=== PATIENT | female | born 1950 | race Caucasian/White ===

== ENCOUNTER 2024-08-13 10:14 | Outpatient (AMB) | payer MEDICARE, SELFPAY ==
[2024-08-13 10:28] VITALS: BP 146/90; PULSE 73; RESP 16; TEMP 36.7; O2SAT 98; BMI 24.0
--- NOTE | 2024-08-13 10:28 | A.OFFPC_ITS ---
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 Transferring care from [facility] in [place], [place]. Medical records have been requested and have been received. Functional Skills Tutor Required: No Accompanied by: Self / Same As Patient Allergies morphine Adverse Reaction (Unknown, Verified 08/13/24 11:10) Itching Medication List - Last Reconciled 08/13/24 by CAPRICE Shanks alprazolam 0.25 mg PO DAILY PRN losartan 50 mg PO DAILY pantoprazole 40 mg PO DAILY paroxetine HCl 40 mg PO DAILY Tobacco use date assessed: 08/13/24 Fall risk assessment: 2 + Falls in past year Last assessed Fall Risk: 08/13/24 Dental Screening Dental Screen Date: 08/13/24 Did you have a dental visit in the last 12 months?: No Did you have a dental problem in the last 6 months where you did not have access to dental care?: No Was dental information given to patient?: No 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 OBGYN: partial hysterectomy-normal PAP smear 2019. Reports that she has never been to an OBGYN and her primary care provider was doing her Pap smear prior Past medical history: left hip pain goes down her leg-lateral hip, then anterior down the leg and stop in the foot. Medications: Family HX: Mother parkinson's disease, materanal grandfather of colon ca in his 50s, maternal aunt had breast ca, she had a ductal carcinoma in-situ and is doing fine Problem: Presenting with a request for medication refills and management of chronic health conditions. She is followed for Velasco's esophagus and was last seen for an EGD in July 2022, with the next procedure planned for 2024. Her condition contributes to dysphagia and a chronic productive cough, both of which have been present for over a year. Her GERD symptoms are controlled with Protonix, though she recently ran out and utilized Nexium temporarily. She reports elevated blood pressure readings despite medication, indicating poorly controlled essential hypertension. Her history of hyperlipidemia was previously managed with statins, which she discontinued due to adverse effects, leaving her current lipid management unchanged. Hip pain is a concern, particularly when she lies down, which has been somewhat alleviated by a contour pillow. Her irritable bowel syndrome remains stable with daily Metamucil intake without any new symptoms. The patient experiences intermittent panic attacks, managed by Paxil and as-needed Xanax. Her familial history of Parkinson?s disease, colon cancer, and breast cancer accentuates the importance of preventive care and routine screenings, including mammograms. [facility] Medical History IBS (irritable bowel syndrome) Hx of small bowel obstruction Surgical History Hx of cholecystectomy Hx of appendectomy Hx of exploratory laparotomy History of partial hysterectomy Hx of cataract removal with insertion of prosthetic lens Family History Mother Parkinson disease Maternal Aunt Breast cancer Maternal Grandfather Colon cancer Social History Household Members: None Housing: Apartment Alcohol intake: current Alcohol intake frequency: a few times a month Patient Tobacco Use Status: Former Tobacco user Tobacco use type: Cigarette Years Smoked: 25 e-Cigarette/Vaping Use: Never Used Second Hand Smoke Exposure: No service: No Current occupational status: retired Current occupational exposures/hazards: No Cognitive needs: No Hearing needs: No Vision needs: Yes (Reading glasses) Questionnaire PHQ-9 Over the last 2 weeks, how often have you been bothered by any of the following problems? 1. Little interest or pleasure in doing things: not at all 2. Feeling down, depressed, or hopeless: not at all 3. Trouble falling or staying asleep, or sleeping too much: several days 4. Feeling tired or having little energy: several days 5. Poor appetite or overeating: not at all 6. Feeling bad about yourself - or that you are a failure or have let yourself or your family down: not at all 7. Trouble concentrating on things, such as reading the newspaper or watching television: not at all 8. Moving or speaking so slowly that other people could have noticed. Or the opposite - being so fidgety or restless that you have been moving around a lot more than usual: not at all 9. Thoughts that you would be better off or of hurting yourself in some way: not at all Total score: 2 Depression Screening Interpretation: Negative Depression Screening Done: Yes 26099 - PHQ-9 Billing: Yes Source: Developed by Drs. Yemi Maynard, Anastasia Steward, Bandar Davis and colleagues, with an educational rae from [employer]. Thrive Questionnaire Date Thrive assessed: 08/13/24 I am a: Patient What is your living situation today?: I have a steady place to live Within the past 12 months, did the food you bought not last and you didn't have the money to get more?: Never true Within the past 12 months, did you worry whether your food would run out before you got money to buy more?: Never true Do you have trouble paying for medicines?: No Do you have trouble getting transportation to medical appointments?: No Do you have trouble paying your heating and electricity bill?: No Do you have trouble taking care of your child, family member or friend?: No Do you have trouble with day-to-day activities such as bathing, preparing meals, shopping, managing finances, etc.?: No Are you currently unemployed and looking for a job?: No Are you interested in more education?: No Please select the resources that you would like help with: None Currently or been in a relationship where the following occur: No concerns reported THRIVE Score: 0 AUDIT C Alcohol Use Questionnaire (AUDIT-C) 1. How often do you have a drink containing alcohol?: 2-4 times a month 2. How many drinks containing alcohol do you have on a typical day when you are drinking?: 1 or 2 3. How often do you have six or more drinks on one occasion?: Never Total Score: 2 Score Reviewed/Action Taken: No AMILCAR-7 AMB Questionnaire AMILCAR-7 Date AMILCAR - 7 assessed: 08/13/24 Feeling nervous, anxious, or on edge: 1 = Several days Not being able to stop or control worryin = Several days Worrying too much about different things: 1 = Several days Trouble relaxin = Not at all Being so restless that it is hard to sit still: 0 = Not at all Becoming easily annoyed or irritable: 0 = Not at all Feeling afraid as if something awful might happen: 0 = Not at all Total AMILCAR-7 score (0-4 normal; 5-9 mild; 10-14 moderate; 15-21 severe): 3 Source: Developed by Drs. Yemi Maynard, Anastasia Steward, Bandar Davis and colleagues, with an educational rae from [employer]. AMILCAR-7 Assessment Billing AMILCAR-7 Assessment Tool: AMILCAR-7 Assessment 41965 Review of Systems Const Details: - Respiratory: Reports chronic productive cough with clear mucus. - Gastrointestinal: Reports dysphagia; denies heartburn with medication. Reports stable irritable bowel syndrome. - Musculoskeletal: Reports hip pain radiating down the leg. - Psychological: Reports well-managed anxiety; occasional panic attacks. Denies headache(s) Eyes Denies loss of vision ENT Denies vertigo, Denies dizziness, Denies headache(s) and Denies sore throat Card Denies chest pain, Denies leg edema and Denies lightheadedness Resp Reports cough (Chronic, coughing up clear phlegm), Denies hemoptysis and Denies wheezing GI Denies abdominal pain, Denies melena, Denies constipation, Reports heartburn, Denies diarrhea, Denies vomiting and Reports other (History of IBS-stable on Metamucil) Denies urinary frequency, Denies dysuria and Denies urinary urgency Musc Reports arthralgias (Left hip), Denies joint swelling, Denies numbness, Reports radiating pain into limb and Denies tingling Neuro Denies Abnormal speech present, Denies behavioral changes, Denies vertigo, Denies dizziness, Denies headache(s), Denies loss of vision, Denies memory loss, Denies numbness and Denies tingling Psych Reports anxiety, Denies behavioral changes, Denies depression, Denies memory loss and Reports panic attacks Bhaskar/Lymph Denies easy bleeding and Denies easy bruising Aller/Immun Denies wheezing Physical exam (Primary Care) Vital Signs: Last Vital Signs Temp 98.0 F 08/13/24 10:28 Pulse 73 08/13/24 10:28 Resp 16 08/13/24 10:28 BP 146/90 H 08/13/24 10:28 Pulse Ox 98 08/13/24 10:28 Oxygen Delivery Method Room Air 08/13/24 10:28 BMI result Body Mass Index 24.0 Tobacco/Smoking Status: Tobacco use Status Tobacco use date assessed 08/13/24 08/13/24 10:49 Patient Tobacco Use Status Former Tobacco user 08/13/24 10:49 Tobacco use type Cigarette 08/13/24 10:49 e-Cigarette/Vaping Use Never Used 08/13/24 10:49 PHQ-9: PHQ-9 Score PHQ-9: Total score 2 08/13/24 11:23 Depression Screening Interpretation: Negative Thrive Assessment: Date of Thrive Assessment Date Thrive assessed 08/13/24 08/13/24 10:49 Currently or been in a relationship where the following occur: No concerns reported Const General: healthy appearing, no acute distress, alert and awake Nutritional Appearance: well nourished Orientation/consciousness: oriented to person, oriented to place and oriented to time HENMT Ears: TM's normal bilaterally General nose exam: Normal nasal mucous membranes and turbinates present Eyes Conjunctivae: conjunctivae normal Sclerae: sclerae normal Pupils: Equal, round and reactive pupils present Neck Neck: Yes no lymphadenopathy and Yes no JVD Thyroid: Thyroid normal Carotids: no bruits Resp Effort & Inspection: normal respiratory effort and not tachypneic Auscultation: no crackles, no rales, no rhonchi and no wheezes Cardio Rate: regular rate Rhythm: regular rhythm Heart sounds: no murmurs and normal S1 and S2 GI Palpation (GI): Soft to palpation, Tenderness to palpation present (GI) in the epigastrum (History of Velasco's esophagus/GERD), no hepatomegaly and no splenomegaly Auscultation: normal bowel sounds Back/Spine/Pelvis Thoracic/Lumbar Spine: lumbar spinal tenderness Skin General skin exam: no rashes or lesions noted and dry skin Neuro General: oriented to person, oriented to place and oriented to time Cranial nerves: Yes Equal, round and reactive pupils present Speech: No Abnormal speech present Gait exam (Neuro): Normal gait present Motor exam (neuro): no tremor noted Extrem Right upper extremity: full ROM Left upper extremity: full ROM Right lower extremity: full ROM; no edema Left lower extremity: full ROM; no edema Psych Mental Status: mental status grossly normal Speech and movement: Normal speech and movement present Affect: normal affect Attitude: cooperative Thought process: Normal thought process present Coding Level of Care Code New Pt Level 4 (70791) Diagnoses Chronic left hip pain M25.552; G89.29 Irritable bowel syndrome with constipation K58.1 Irritable bowel syndrome type: with constipation Velasco's esophagus with dysplasia K22.719 Velasco's esophagus type: with dysplasia of unspecified degree Gastroesophageal reflux disease, unspecified whether esophagitis present K21.9 Esophagitis presence: esophagitis presence not specified Chronic cough R05.3 Anxiety F41.9 Panic attack F41.0 Hypertension, unspecified type I10 Hypertension type: unspecified Additional Codes AMILCAR-7 Assessment Billing - AMILCAR-7 Assessment Tool: AMILCAR-7 Assessment 39748 ([id number]) PHQ-9 - 15522 - PHQ-9 Billing: Yes ([id number]) Time Spent (min) 43 Assessment & Plan Assessment & Plan (1) Chronic left hip pain: Code(s): M25.552 - Pain in left hip; G89.29 - Other chronic pain Category: Medical Plan: Patient reports a history of left hip pain that radiates into her left leg intermittently. Starting from the left hip to anterior thigh down to anterior lower leg. (2) IBS (irritable bowel syndrome): Code(s): K58.9 - Irritable bowel syndrome, unspecified Category: Medical Qualifiers: Irritable bowel syndrome type: with constipation Qualified Code(s): K58.1 - Irritable bowel syndrome with constipation Plan: Controlled-reports using Metamucil with positive effect (3) Barretts esophagus: Code(s): K22.70 - Velasco's esophagus without dysplasia Category: Medical Qualifiers: Velasco's esophagus type: with dysplasia of unspecified degree Qualified Code(s): K22.719 - Velasco's esophagus with dysplasia, unspecified Plan: EGD was due to be repeated in July 2024. We will refer the patient to GI urgently (4) GERD (gastroesophageal reflux disease): Code(s): K21.9 - Gastro-esophageal reflux disease without esophagitis Category: Medical Qualifiers: Esophagitis presence: esophagitis presence not specified Qualified Code(s): K21.9 - Gastro-esophageal reflux disease without esophagitis Plan: Reinforced dietary restriction, refrain from eating close to bedtime. Continue pantoprazole 40 mg daily (5) Chronic cough: Code(s): R05.3 - Chronic cough Category: Medical Plan: Chronic cough with productive phlegm. Consider side effects of losartan or respiratory illness. We will obtain an x-ray to further evaluate. (6) Anxiety: Code(s): F41.9 - Anxiety disorder, unspecified Category: Medical Plan: Encouraged CBT Continue paroxetine 40 mg daily and alprazolam 0.25 mg prn Denies SI/HI (7) Panic attack: Code(s): F41.0 - Panic disorder [episodic paroxysmal anxiety] Category: Medical Plan: Same as above (8) HTN (hypertension): Code(s): I10 - Essential (primary) hypertension Category: Medical Qualifiers: Hypertension type: unspecified Qualified Code(s): I10 - Essential (primary) hypertension Plan: Encouraged DASH diet and activity as tolerated, refrain alcohol use. If you smoke, smoking cessation is encouraged Patient blood pressure is above goal in office. Consider anxiety coming into a new office. Continue losartan 100 mg daily, monitor blood pressure closely. We will schedule the patient for a nurse visit for blood pressure check in 4 weeks. Orders: Orders Complete Blood Count Auto Diff 08/13/24 F41.0 - Panic disorder [episodic paroxysmal anxiety], F41.9 - Anxiety disorder, unspecified, Z00.00 - Encounter for general adult medical examination without abnormal findings Comprehensive [place]. Panel Fast 08/13/24 F41.0 - Panic disorder [episodic paroxysmal anxiety], F41.9 - Anxiety disorder, unspecified, Z00.00 - Encounter for general adult medical examination without abnormal findings Vitamin D 25-OH Total 08/13/24 F41.0 - Panic disorder [episodic paroxysmal anxiety], F41.9 - Anxiety disorder, unspecified, Z00.00 - Encounter for general adult medical examination without abnormal findings TSH reflex Free T4 08/13/24 F41.0 - Panic disorder [episodic paroxysmal anxiety], F41.9 - Anxiety disorder, unspecified, Z00.00 - Encounter for general adult medical examination without abnormal findings UA CC w/rflx Micro + Cult 08/14/24 F41.0 - Panic disorder [episodic paroxysmal anxiety], F41.9 - Anxiety disorder, unspecified, Z00.00 - Encounter for general adult medical examination without abnormal findings XR chest 2V 08/14/24 R05.3 - Chronic cough Glucose Fasting 08/13/24 F41.0 - Panic disorder [episodic paroxysmal anxiety], F41.9 - Anxiety disorder, unspecified, Z00.00 - Encounter for general adult medical examination without abnormal findings Lipid Panel 08/13/24 F41.0 - Panic disorder [episodic paroxysmal anxiety], F41.9 - Anxiety disorder, unspecified, Z00.00 - Encounter for general adult medical examination without abnormal findings MM tomosynthesis screening BI 08/14/24 Z12.39 - Encounter for other screening for malignant neoplasm of breast Referrals Gastroenterology Referral Z12.11 - Encounter for screening for malignant neoplasm of colon, Z86.0101 - Personal history of adenomatous and serrated colon polyps Gastroenterology Referral K21.9 - Gastro-esophageal reflux disease without esophagitis, K22.70 - Velasco's esophagus without dysplasia, K58.9 - Irritable bowel syndrome, unspecified Medications: New pantoprazole 40 mg PO DAILY 90 tabs 1RF losartan 100 mg PO DAILY 60 tabs 0RF alprazolam take 0.25 or 0.5.5 by mouth daily prn 0.25 mg (1/2 x 0.5 mg) PO DAILY PRN 30 tabs 0RF anxiety F41.0 - Panic disorder [episodic paroxysmal anxiety], F41.9 - Anxiety disorder, unspecified paroxetine HCl 40 mg PO DAILY 90 tabs 0RF F41.0 - Panic disorder [episodic paroxysmal anxiety], F41.9 - Anxiety disorder, unspecified
== END 2024-08-13 11:45 | disposition home or self-care (01) ==
DX: M25.552 Pain in left hip (principal); G89.29 Other chronic pain; K58.1 Irritable bowel syndrome with constipation; K22.719 Barrett's esophagus with dysplasia, unspecified; K21.9 Gastro-esophageal reflux disease without esophagitis; R05.3 Chronic cough; F41.9 Anxiety disorder, unspecified; F41.0 Panic disorder [episodic paroxysmal anxiety]; I10 Essential (primary) hypertension

== ENCOUNTER 2024-08-13 10:14 | Outpatient (REF) | payer MEDICARE, SELFPAY ==
[2024-08-13 12:12] LABS: MANUAL DIFF FLAG NO
[2024-08-13 12:18] LABS: Basophils Percent Auto 0.5 % (0-2); Eosinophils Absolute Auto 0.1 X10*3/uL (0.0-0.4); Eosinophils Percent Auto 1.5 % (0-4); Hematocrit 40.3 % (37.0-47.0); Hemoglobin 13.2 g/dl (12.0-16.0); Imm Gran Abs Auto 0.01 X10*3/uL (0.00-0.03); Imm Gran Pct Auto 0.2 % (0.0-0.4); Lymphocytes Percent Auto 45.3 % (20-40); Mean Corpuscular HGB Conc 32.8 g/dl (31.0-35.0); Mean Corpuscular Hemoglobin 30.8 pg (27.0-33.0); Mean Corpuscular Volume 94.2 fL (80.0-98.0); Mean Platelet Volume 10.3 fL (9.4-12.3); Monocytes Absolute Auto 0.3 X10*3/uL (0.1-1.2); Monocytes Percent Auto 4.7 % (2-11); Neutrophils Absolute Auto 3.1 x10*3/uL (2.0-8.3); Neutrophils Percent Auto 47.8 % (45-73); Platelet Count 319 X10*3/uL (160-400); Red Blood Count 4.28 X10*6/uL (4.20-5.50); Red Cell Distribution Width 13.3 % (11.0-16.0); White Blood Count 6.6 X10*3/uL (4.8-10.8)
[2024-08-13 13:13] LABS: Alanine Aminotransferase 9 U/L (0-31); Albumin Level 4.3 g/dL (3.5-5.0); Anion Gap 13 (12-20); Aspartate Amino Transferase 20 U/L (5-31); Bilirubin Total 0.4 mg/dL (0.0-1.0); Blood Urea Nitrogen 13 mg/dL (9-16); Calcium 9.2 mg/dL (8.4-10.2); Carbon Dioxide 25 mmol/L (22-29); Chloride 107 mmol/L (96-108); Cholesterol 229 mg/dL (<200); Estimated Glomerular Filt Rate > 60; Glucose Fasting 97 mg/dL (60-99); HDL Cholesterol 72 mg/dL (>40); LDL Cholesterol Calculated 130 mg/dL (<100); Potassium 4.2 mmol/L (3.3-5.1); Sodium 141 mmol/L (135-145); Total Protein 6.9 g/dL (6.5-8.0); Triglycerides 136 mg/dL (<150)
[2024-08-13 13:16] LABS: TSH reflex Free T4 0.81 uIU/mL (0.32-4.0)
[2024-08-13 16:59] LABS: Alkaline Phosphatase 86 U/L (39-117)
== END 2024-08-13 10:15 | disposition home or self-care (01) ==
LOC: HO.LAB 10:14
DX: Z76.89 Persons encountering health services in other specified circumstances (principal); M25.552 Pain in left hip; G89.29 Other chronic pain; K58.1 Irritable bowel syndrome with constipation; K22.719 Barrett's esophagus with dysplasia, unspecified; K21.9 Gastro-esophageal reflux disease without esophagitis; R05.3 Chronic cough; F41.0 Panic disorder [episodic paroxysmal anxiety]; I10 Essential (primary) hypertension; Z00.00 Encounter for general adult medical examination without abnormal findings
CPT/HCPCS: 36415; 80053; 80061; 82306; 84443; 85025; 96127; 99202

== ENCOUNTER 2024-08-14 11:59 | Outpatient (REF) | payer MEDICARE, SELFPAY ==
[2024-08-14 12:14] LABS: Appearance Urine Clear; Color Urine Yellow; Glucose Urine UA Negative (Negative); Leukocyte Esterase Urine Negative (Negative); Nitrite Urine Negative (Negative); PH 6.5 (5.0-9.0); Urine Blood Negative (Negative); Urine Ketones Negative (Negative); Urine Protein Negative (Neg-Trace)
== END 2024-08-14 12:00 | disposition home or self-care (01) ==
LOC: HO.LNP 11:59
DX: Z00.00 Encounter for general adult medical examination without abnormal findings (principal); F41.9 Anxiety disorder, unspecified; F41.0 Panic disorder [episodic paroxysmal anxiety]
CPT/HCPCS: 81003

== ENCOUNTER 2024-10-10 13:31 | Outpatient (REF) | payer MEDICARE, SELFPAY | END 2024-10-10 13:32 | disposition home or self-care (01) | LOC: HO.MAMMO 13:31 | DX: Z12.31 Encounter for screening mammogram for malignant neoplasm of breast (principal) | CPT/HCPCS: 77063; 77067 ==

== ENCOUNTER → 2024-10-10 14:00 | Outpatient (BNV) | payer MEDICARE, SELFPAY | PROVIDERS: Visit Provider Internal Medicine | DX: Z12.31 Encounter for screening mammogram for malignant neoplasm of breast (principal) | CPT/HCPCS: 77063; 77067 ==

== ENCOUNTER 2024-11-13 10:08 | Outpatient (AMB) | payer MEDICARE, SELFPAY ==
[2024-11-13 10:14] VITALS: BP 138/76; PULSE 76; RESP 18; O2SAT 96; BMI 23.9
--- NOTE | 2024-11-13 10:14 | MHC.PC.OV ---
Vital Signs 11/13/24 10:14 Height 5 ft 3.5 in Weight 137 lb BMI 23.9 BP 138/76 Blood Pressure Location Lt brachial Position Sitting Respiration 18 Pulse 76 Pulse Source Pulse Oximeter Temp Source Temporal Artery Scan Pulse Oximetry (%) 96 Oxygen Delivery Method Room Air Intake Visit Reasons: htn/hld Analysis Consultant Required: No Accompanied by: Self / Same As Patient Allergies morphine Adverse Reaction (Unknown, Verified 12/06/24 13:16) Itching Medication List - Last Reconciled 11/13/24 by CAPRICE Shanks alprazolam 0.25 mg (1/2 x 0.5 mg) PO DAILY PRN cholecalciferol (vitamin D3) 50 mcg PO DAILY losartan 100 mg PO DAILY pantoprazole 40 mg PO DAILY paroxetine HCl 40 mg PO DAILY Tobacco use date assessed: 11/13/24 Fall risk assessment: No Falls in past year Last assessed Fall Risk: 11/13/24 Dental Screening Dental Screen Date: 11/13/24 Did you have a dental visit in the last 12 months?: No Did you have a dental problem in the last 6 months where you did not have access to dental care?: No Was dental information given to patient?: Patient has dentist HPI htn/hld HPI Details The patient is a 71-year-old female presenting for follow up appointment Patient reports that she is feeling okay today She reports that every once in a while she is still having breakthrough anxiety but no panic attacks anymore Says that she believes that is related to her still getting used to the area, and she is still not fully comfortable traveling as yet Reports that she took Xanax at home before this appointment and this will make her feel okay for the rest of the day She reports that her blood pressure has been much better and she is requesting a refill on the medication Patient reports that her cholesterol has always been elevated even when she was on statins She will continue dietary modifications and we will start taking her vitamin-D supplement to increase her energy She has questions about vaccines that she should be taking-here to discuss discuss Currently she has been doing COVID in the flu vaccine annually, she would like to know if she should take the pneumonia vaccine She denies shortness of breath, has been, heart palpitation or dizziness Denies abdominal pain or any change in bowel habits Denies any urinary symptoms [facility] Medical History (Updated 12/06/24 @ 13:33 by RICARDO Gifford) Encounter for colonoscopy due to history of adenomatous colonic polyps Breast cancer screening IBS (irritable bowel syndrome) Hx of small bowel obstruction Surgical History Hx of cholecystectomy Hx of appendectomy Hx of exploratory laparotomy History of partial hysterectomy Hx of cataract removal with insertion of prosthetic lens Family History Mother Parkinson disease Maternal Aunt Breast cancer Maternal Grandfather Colon cancer Social History Household Members: None Housing: Apartment Alcohol intake: current Alcohol intake frequency: a few times a month Patient Tobacco Use Status: Former Tobacco user Tobacco use type: Cigarette Years Smoked: 25 e-Cigarette/Vaping Use: Never Used Second Hand Smoke Exposure: No service: No Current occupational status: retired Current occupational exposures/hazards: No Cognitive needs: No Hearing needs: No Vision needs: Yes (Reading glasses) Questionnaire PHQ-9 Over the last 2 weeks, how often have you been bothered by any of the following problems? 1. Little interest or pleasure in doing things: not at all 2. Feeling down, depressed, or hopeless: not at all 3. Trouble falling or staying asleep, or sleeping too much: several days 4. Feeling tired or having little energy: several days 5. Poor appetite or overeating: not at all 6. Feeling bad about yourself - or that you are a failure or have let yourself or your family down: not at all 7. Trouble concentrating on things, such as reading the newspaper or watching television: not at all 8. Moving or speaking so slowly that other people could have noticed. Or the opposite - being so fidgety or restless that you have been moving around a lot more than usual: not at all 9. Thoughts that you would be better off or of hurting yourself in some way: not at all Total score: 2 Depression Screening Interpretation: Negative Depression Screening Done: Yes Source: Developed by Drs. Yemi Maynard, Anastasia Steward, Bandar Davis and colleagues, with an educational rae from [employer]. Thrive Questionnaire Date Thrive assessed: 11/13/24 I am a: Patient What is your living situation today?: I have a steady place to live Within the past 12 months, did the food you bought not last and you didn't have the money to get more?: Never true Within the past 12 months, did you worry whether your food would run out before you got money to buy more?: Never true Do you have trouble paying for medicines?: No Do you have trouble getting transportation to medical appointments?: No Do you have trouble paying your heating and electricity bill?: No Do you have trouble taking care of your child, family member or friend?: No Do you have trouble with day-to-day activities such as bathing, preparing meals, shopping, managing finances, etc.?: No Are you currently unemployed and looking for a job?: No Are you interested in more education?: No Please select the resources that you would like help with: None Currently or been in a relationship where the following occur: No concerns reported THRIVE Score: 0 AUDIT C Alcohol Use Questionnaire (AUDIT-C) 1. How often do you have a drink containing alcohol?: 2-4 times a month 2. How many drinks containing alcohol do you have on a typical day when you are drinking?: 1 or 2 3. How often do you have six or more drinks on one occasion?: Never Total Score: 2 Score Reviewed/Action Taken: No AMILCAR-7 AMB Questionnaire AMILCAR-7 Date AMILCAR - 7 assessed: 11/13/24 Feeling nervous, anxious, or on edge: 1 = Several days Not being able to stop or control worryin = Several days Worrying too much about different things: 1 = Several days Trouble relaxin = Not at all Being so restless that it is hard to sit still: 0 = Not at all Becoming easily annoyed or irritable: 0 = Not at all Feeling afraid as if something awful might happen: 0 = Not at all Total AMILCAR-7 score (0-4 normal; 5-9 mild; 10-14 moderate; 15-21 severe): 3 Source: Developed by Drs. Ymei Maynard, Anastasia Steward, Bandar Davis and colleagues, with an educational rae from [employer]. Review of Systems Const Denies body aches, Denies chills, Denies fever(s), Denies headache(s) and Denies poor appetite Eyes Reports no additional complaints ENT Denies dysphagia, Denies dizziness, Denies headache(s) and Denies odynophagia Card Denies chest pain, Denies syncope, Denies edema, Denies irregular heart rhythm, Denies lightheadedness and Denies dyspnea Resp Denies cough and Denies dyspnea GI Denies abdominal pain, Denies constipation, Denies dysphagia, Denies diarrhea, Denies nausea, Denies odynophagia and Denies vomiting Reports no additional complaints Musc Reports no additional complaints and Denies abnormal gait Skin/Breast Reports system reviewed and no additional complaints, except as documented Neuro Denies abnormal gait, Denies dizziness, Denies syncope and Denies headache(s) Psych Reports anxiety and Reports panic attacks (None in a while) Physical exam (Primary Care) Vital Signs: Last Vital Signs Pulse 76 11/13/24 10:14 Resp 18 11/13/24 10:14 BP 138/76 11/13/24 10:14 Pulse Ox 96 11/13/24 10:14 Oxygen Delivery Method Room Air 11/13/24 10:14 BMI result Body Mass Index 23.9 Tobacco/Smoking Status: Tobacco use Status Tobacco use date assessed 11/13/24 11/13/24 10:22 Patient Tobacco Use Status Former Tobacco user 11/13/24 10:22 Tobacco use type Cigarette 11/13/24 10:22 e-Cigarette/Vaping Use Never Used 11/13/24 10:22 PHQ-9: PHQ-9 Score PHQ-9: Total score 2 11/13/24 11:08 Depression Screening Interpretation: Negative Thrive Assessment: Date of Thrive Assessment Date Thrive assessed 11/13/24 11/13/24 10:22 Currently or been in a relationship where the following occur: No concerns reported Const General: cooperative, healthy appearing, comfortable and no acute distress Orientation/consciousness: patient oriented x3 HENMT Head: Yes normocephalic Ears: hearing grossly normal bilaterally General nose exam: Normal external nose present Eyes General: appearance normal, both eyes and all related structures Conjunctivae: conjunctivae normal Neck Neck: Yes full ROM and Yes no lymphadenopathy Resp Effort & Inspection: normal respiratory effort Auscultation: clear to auscultation bilaterally, no crackles, no rales, no rhonchi and no wheezes Cardio Rate: regular rate Rhythm: regular rhythm Heart sounds: no murmurs GI Palpation (GI): Soft to palpation and nontender Auscultation: normal bowel sounds Skin General skin exam: no rashes or lesions noted Neuro General: patient oriented x3 Gait exam (Neuro): Normal gait present Extrem General: Yes normal to inspection, Yes full ROM and No edema Right lower extremity: full ROM; no edema Left lower extremity: full ROM; no edema Psych Affect: normal affect Attitude: cooperative Insight: Good insight present (Psych) Judgement: Good judgement present (Psych) Results Reviewed Results Reviewed: Laboratory Tests 08/13/24 08/14/24 12:10 09:25 WBC 6.6 RBC 4.28 Hgb 13.2 Hct 40.3 MCV 94.2 MCH 30.8 MCHC 32.8 RDW 13.3 Plt Count 319 MPV 10.3 Immature Gran % (Auto) 0.2 Sodium 141 Potassium 4.2 Chloride 107 Carbon Dioxide 25 Anion Gap 13 BUN 13 Creatinine 0.79 Estimated GFR > 60 Fasting Glucose 97 Calcium 9.2 Total Bilirubin 0.4 AST 20 ALT 9 Alkaline Phosphatase 86 Albumin 4.3 Triglycerides 136 Cholesterol 229 H LDL Cholesterol, Calc 130 H HDL Cholesterol 72 25-OH Vitamin D Total 17.0 L TSH 0.81 Urine Color Yellow Urine Appearance Clear Urine pH 6.5 Ur Specific [place] 1.020 Urine Protein Negative Urine Glucose (UA) Negative Urine Ketones Negative Urine Blood Negative Urine Nitrite Negative Ur Leukocyte Esterase Negative Coding Level of Care Code Est Pt Level 3 (49238) Diagnoses Panic attack F41.0 Anxiety F41.9 Hypertension, unspecified type I10 Hypertension type: unspecified Hyperlipidemia, unspecified hyperlipidemia type E78.5 Hyperlipidemia type: unspecified Vitamin D deficiency E55.9 Gastroesophageal reflux disease, unspecified whether esophagitis present K21.9 Esophagitis presence: esophagitis presence not specified Time Spent (min) 36 Assessment & Plan Assessment & Plan (1) Panic attack: Code(s): F41.0 - Panic disorder [episodic paroxysmal anxiety] Category: Medical (2) Anxiety: Code(s): F41.9 - Anxiety disorder, unspecified Category: Medical (3) HTN (hypertension): Code(s): I10 - Essential (primary) hypertension Category: Medical Qualifiers: Hypertension type: unspecified Qualified Code(s): I10 - Essential (primary) hypertension (4) HLD (hyperlipidemia): Code(s): E78.5 - Hyperlipidemia, unspecified Category: Medical Qualifiers: Hyperlipidemia type: unspecified Qualified Code(s): E78.5 - Hyperlipidemia, unspecified (5) Vitamin D deficiency: Code(s): E55.9 - Vitamin D deficiency, unspecified Category: Medical (6) GERD (gastroesophageal reflux disease): Code(s): K21.9 - Gastro-esophageal reflux disease without esophagitis Category: Medical Qualifiers: Esophagitis presence: esophagitis presence not specified Qualified Code(s): K21.9 - Gastro-esophageal reflux disease without esophagitis Plan The management plan involves maintaining current hypertension medications due to stable blood pressure readings. For hyperlipidemia, dietary changes are advised, and cholesterol levels will be re-evaluated in three months. Anxiety will be managed with Xanax as needed, focusing on reducing stress through lifestyle modifications. Protonix will continue to be used for gastroesophageal reflux disease management, as it is effective in symptom control. Vitamin D supplementation will be continued to support bone health and alleviate musculoskeletal symptoms. Preventative care includes vaccinations for flu, COVID-19, RSV, pneumonia, and shingles, with instructions on where to obtain them. Patient was informed and verbally consented to the use of an ambient scribe for clinic note documentation during this visit. Orders: Orders Lipid Panel 3 Months F41.9 - Anxiety disorder, unspecified, F41.0 - Panic disorder [episodic paroxysmal anxiety], I10 - Essential (primary) hypertension, E78.5 - Hyperlipidemia, unspecified, E55.9 - Vitamin D deficiency, unspecified, K22.719 - Velasco's esophagus with dysplasia, unspecified, K21.9 - Gastro-esophageal reflux disease without esophagitis TSH reflex Free T4 3 Months F41.9 - Anxiety disorder, unspecified, F41.0 - Panic disorder [episodic paroxysmal anxiety], I10 - Essential (primary) hypertension, E78.5 - Hyperlipidemia, unspecified, E55.9 - Vitamin D deficiency, unspecified, K22.719 - Velasco's esophagus with dysplasia, unspecified, K21.9 - Gastro-esophageal reflux disease without esophagitis Vitamin D 25-OH Total 3 Months F41.9 - Anxiety disorder, unspecified, F41.0 - Panic disorder [episodic paroxysmal anxiety], I10 - Essential (primary) hypertension, E78.5 - Hyperlipidemia, unspecified, E55.9 - Vitamin D deficiency, unspecified, K22.719 - Velasco's esophagus with dysplasia, unspecified, K21.9 - Gastro-esophageal reflux disease without esophagitis Comprehensive [place]. Panel Fast 3 Months F41.9 - Anxiety disorder, unspecified, F41.0 - Panic disorder [episodic paroxysmal anxiety], I10 - Essential (primary) hypertension, E78.5 - Hyperlipidemia, unspecified, E55.9 - Vitamin D deficiency, unspecified, K22.719 - Velasco's esophagus with dysplasia, unspecified, K21.9 - Gastro-esophageal reflux disease without esophagitis UA CC w/rflx Micro + Cult 3 Months F41.9 - Anxiety disorder, unspecified, F41.0 - Panic disorder [episodic paroxysmal anxiety], I10 - Essential (primary) hypertension, E78.5 - Hyperlipidemia, unspecified, E55.9 - Vitamin D deficiency, unspecified, K22.719 - Velasco's esophagus with dysplasia, unspecified, K21.9 - Gastro-esophageal reflux disease without esophagitis Medications: Refilled pantoprazole 40 mg PO DAILY 90 tabs 3RF losartan 100 mg PO DAILY 90 tabs 3RF paroxetine HCl 40 mg PO DAILY 90 tabs 3RF F41.9 - Anxiety disorder, unspecified, F41.0 - Panic disorder [episodic paroxysmal anxiety]
== END 2024-11-13 10:58 | disposition home or self-care (01) ==
DX: F41.0 Panic disorder [episodic paroxysmal anxiety] (principal); F41.9 Anxiety disorder, unspecified; I10 Essential (primary) hypertension; E78.5 Hyperlipidemia, unspecified; E55.9 Vitamin D deficiency, unspecified; K21.9 Gastro-esophageal reflux disease without esophagitis

== ENCOUNTER → 2024-11-13 10:08 | Outpatient (BNVA) | payer MEDICARE, SELFPAY | DX: I10 Essential (primary) hypertension (principal); E78.5 Hyperlipidemia, unspecified; F41.9 Anxiety disorder, unspecified; F41.0 Panic disorder [episodic paroxysmal anxiety]; E55.9 Vitamin D deficiency, unspecified; K21.9 Gastro-esophageal reflux disease without esophagitis | CPT/HCPCS: 96127; 99212 ==

== ENCOUNTER 2024-12-06 12:35 | Outpatient (REF) | payer MEDICARE, SELFPAY ==
[2024-12-07 06:08] LABS: Class Almond 0; Class Brazil Nut 0; Class Cashew 0; Class Codfish 0; Class Cow's Milk 0; Class Egg white 0; Class Hazelnut 0; Class Macadamia Nut 0; Class Peanut 0; Class Salmon 0; Class Scallop 0; Class Sesame Seed 0; Class Shrimp 0; Class Soybean 0; Class Tuna 0; Class Walnut 0; Class Wheat 0; F345-IgE Macadmia Nut <0.10 kU/L
[2024-12-12 14:48] LABS: Transglutaminase Ab IgG <1.0 U/mL
== END 2024-12-06 12:36 | disposition home or self-care (01) ==
LOC: HO.LAB 12:35
PROVIDERS: Visit Provider Nurse Practitioner
DX: Z01.818 Encounter for other preprocedural examination (principal); K22.719 Barrett's esophagus with dysplasia, unspecified; K21.9 Gastro-esophageal reflux disease without esophagitis; K58.1 Irritable bowel syndrome with constipation; D12.6 Benign neoplasm of colon, unspecified; R19.7 Diarrhea, unspecified; Z12.11 Encounter for screening for malignant neoplasm of colon; Z88.5 Allergy status to narcotic agent
CPT/HCPCS: 36415; 86003; 86364; 99202

== ENCOUNTER 2024-12-06 12:35 | Outpatient (AMB) | payer MEDICARE, SELFPAY ==
--- NOTE | 2024-12-06 12:43 | A.OFFVIS_ITS ---
Vital Signs 3 12/06/24 13:09 Height 5 ft 3 in Weight 137 lb BMI 24.3 BP 120/80 Blood Pressure Location Lt brachial Pulse 73 Intake Visit Reasons: colo screening, gerd, barretts esophagus, ibs Accompanied by: Self / Same As Patient Allergies morphine Adverse Reaction (Unknown, Verified 12/06/24 13:16) Itching HPI HPI colo screening, gerd, barretts esophagus, ibs: Details: 74-year-old female here for a screening colonoscopy and evaluation of GERD and Barretts esophagus. She is referred by Hussain Gray. PMX Hypertension High cholesterol Chronic cough GERD/Barretts IBS Chronic left hip pain Anxiety with panic attacks History of small-bowel obstruction s/p appendix rupture adn sepsis * SURGICAL HISTORY Cholecystectomy Appendectomy Exploratory laparotomy Partial hysterectomy Cataract surgery Tonsillectomy and adenectomy * ALLERGIES Morphine * Client24 LABS: Laboratory Tests 08/13/24 12:10 WBC 6.6 Hgb 13.2 Hct 40.3 Plt Count 319 Estimated GFR > 60 Total Bilirubin 0.4 AST 20 ALT 9 Alkaline Phosphatase 86 TSH 0.81 TODAY'S VISIT Her 2022 scope showed a TVA and the rectal polyp, 1 of 3, was 1.5cm. EGD showed mod chronic gastirits on biopsy , negative for H pylori, and Barrets esophogus w/o any dyplasia. No anes or sed problems. No card or resp problems. NO ID problems. Her maternal grandfather of CRC in 60's, maternal grandmother had polyps. [facility] Medical History (Updated 12/06/24 @ 13:33 by RICARDO Gifford) Encounter for colonoscopy due to history of adenomatous colonic polyps Breast cancer screening IBS (irritable bowel syndrome) Hx of small bowel obstruction Surgical History Hx of cholecystectomy Hx of appendectomy Hx of exploratory laparotomy History of partial hysterectomy Hx of cataract removal with insertion of prosthetic lens Family History Mother Parkinson disease Maternal Aunt Breast cancer Maternal Grandfather Colon cancer Social History Household Members: None Housing: Apartment Alcohol intake: current Alcohol intake frequency: a few times a month Patient Tobacco Use Status: Former Tobacco user Tobacco use type: Cigarette Years Smoked: 25 e-Cigarette/Vaping Use: Never Used Second Hand Smoke Exposure: No service: No Current occupational status: retired Current occupational exposures/hazards: No Cognitive needs: No Hearing needs: No Vision needs: Yes (Reading glasses) Review of Systems Const Denies fatigue, Denies fever(s), Denies night sweats, Denies poor appetite and Denies weight loss ENT Reports Normal hearing present, Denies dental pain, Denies dysphagia, Denies hearing loss, Denies mouth pain, Denies odynophagia, Denies throat swelling, Denies tongue swelling and Reports other (Dentition adequate) Card Reports no additional complaints Resp Reports no additional complaints GI Details: Denies abdominal pain, Denies melena, Denies bloating, Denies hematochezia, Denies constipation, Denies GI cramping, Denies dysphagia, Denies excessive flatus, Denies early satiety, Denies heartburn, Denies diarrhea, Denies nausea, Denies odynophagia, Denies vomiting and Denies hematemesis Skin/Breast Denies pruritus, Denies lesions, Denies rash and Denies jaundice Neuro Reports Normal hearing present and Denies Abnormal speech present Endo Denies fatigue Aller/Immun Denies throat swelling and Denies tongue swelling Physical Exam Vital Signs: Last Vital Signs Pulse 73 12/06/24 13:09 BP 120/80 12/06/24 13:09 BMI result Body Mass Index 24.3 Const General: cooperative, no acute distress, well developed and well groomed Nutritional Appearance: average body habitus and well nourished Orientation/consciousness: oriented to person, oriented to place and oriented to time Limitations: No language barrier HEENT Head: Yes normocephalic and Yes atraumatic Eyes General: appearance normal, both eyes and all related structures Pupils: Equal, round and reactive pupils present Neck Neck: Yes normal visual inspection and Yes no lymphadenopathy Thyroid: Thyroid normal Resp Effort & Inspection: normal respiratory effort and able to speak in complete sentences Auscultation: clear to auscultation bilaterally Cardio Rate: regular rate Rhythm: regular rhythm Heart sounds: Normal, physiologic split S2 sound present Peripheral pulses: radial pulses present and posterior tibial pulses present GI Inspection: No distended and No Abdominal panniculus present Palpation (GI): Soft to palpation, nontender, no guarding, not rigid and No hepatosplenomegaly present Percussion: Yes normal to percussion Auscultation: normal bowel sounds Rectal Exam - Female: deferred Abdomen image: 2 1. surgical scars Skin General skin exam: no rashes or lesions noted, turgor normal, skin not dry, no jaundice, No spider nevi and no striae Rashes: no rashes Nails: normal Neuro General: oriented to person, oriented to place and oriented to time Cranial nerves: Yes Equal, round and reactive pupils present and Yes Normal hearing present Speech: No Abnormal speech present Extrem General: Yes normal to inspection, No clubbing, No cyanosis and No edema Psych Appearance: grossly normal and well kempt Mental Status: mental status grossly normal Speech and movement: Normal speech and movement present Affect: normal affect Attitude: cooperative Thought process: Normal thought process present and not confabulating Thought content: Normal thought content present Insight: Good insight present (Psych) Judgement: Good judgement present (Psych) Assessment & Plan Assessment & Plan (1) Pre-op examination: Code(s): Z01.818 - Encounter for other preprocedural examination Category: Medical (2) Barretts esophagus: Comment: 2022 last EGD biopsy showed continued metaplasia no dysplasia Code(s): K22.70 - Velasco's esophagus without dysplasia Category: Medical Qualifiers: Velasco's esophagus type: with dysplasia of unspecified degree Q ualified Code(s): K22.719 - Velasco's esophagus with dysplasia, unspecified (3) GERD (gastroesophageal reflux disease): Code(s): K21.9 - Gastro-esophageal reflux disease without esophagitis Category: Medical Qualifiers: Esophagitis presence: esophagitis presence not specified Qualified Code(s): K21.9 - Gastro-esophageal reflux disease without esophagitis (4) IBS (irritable bowel syndrome): Code(s): K58.9 - Irritable bowel syndrome, unspecified Category: Medical Qualifiers: Irritable bowel syndrome type: with constipation Qualified Code(s): K 58.1 - Irritable bowel syndrome with constipation (5) Tubulovillous adenoma of colon: Comment: 2022 SCOPE IN [place] equaled for polyps the rectal polyp is 1.5 cm and was a tubulovillous adenoma Code(s): D12.6 - Benign neoplasm of colon, unspecified Category: Medical (6) Diarrhea: Code(s): R19.7 - Diarrhea, unspecified Category: Medical Plan Her 2022 scope showed a TVA and the rectal polyp, 1 of 3, was 1.5cm. EGD showed mod chronic gastirits on biopsy , negative for H pylori, and Barrets esophogus w/o any dyplasia. No anes or sed problems. No card or resp problems. NO ID problems. Her maternal grandfather of CRC in 60's, maternal grandmother had polyps. Orders: Orders 2 EGD/[facility] Combo - GI Use Only 12/06/24 D12.6 - Benign neoplasm of colon, unspecified Transglutaminase IgA 12/06/24 R19.7 - Diarrhea, unspecified Transglutaminase Ab IgG 12/06/24 R19.7 - Diarrhea, unspecified Medications: New 2 peg 3350-electrolytes 236-22.74-6.74 -5.86 gram (Golytely) until fecal effluent is clear; do not exceed a total volume of 2,000 mL 240 mL PO Q10M 4,000 mL 0RF 1 day Z12.11 - Encounter for screening for malignant neoplasm of colon bisacodyl (Dulcolax (bisacodyl)) 10 mg (2 x 5 mg) PO BEDTIME 4 tabs 0RF 2 days dicyclomine 20 mg PO QID 120 tabs 3RF 30 days K58.1 - Irritable bowel syndrome with constipation Coding Level of Care Code New Pt Level 3 (62781) Diagnoses Pre-op examination Z01.818 Velasco's esophagus with dysplasia K22.719 Velasco's esophagus type: with dysplasia of unspecified degree Gastroesophageal reflux disease, unspecified whether esophagitis present K21.9 Esophagitis presence: esophagitis presence not specified Irritable bowel syndrome with constipation K58.1 Irritable bowel syndrome type: with constipation Tubulovillous adenoma of colon D12.6 Diarrhea R19.7
[2024-12-06 13:09] VITALS: BP 120/80; PULSE 73; BMI 24.3
== END 2024-12-06 13:47 | disposition home or self-care (01) ==
LOC: HO.HGI 12:35
PROVIDERS: Visit Provider Nurse Practitioner
DX: K21.9 Gastro-esophageal reflux disease without esophagitis (principal); K58.1 Irritable bowel syndrome with constipation; R19.7 Diarrhea, unspecified; Z86.0101 Personal history of adenomatous and serrated colon polyps
CPT/HCPCS: 99203

== ENCOUNTER 2025-01-21 11:43 | Day surgery (SDC) | payer MEDICARE, SELFPAY ==
[2024-12-27 14:54] VITALS: BMI 24.3
--- NOTE | 2024-12-30 09:44 | HO.ANESPROP2 ---
HPI - Anesthesia Eval Consult details Narrative: 74yo F for Upper Endoscopy and Colonoscopy PMF Active Problems Active Problems: All Active Problems Diarrhea (Acute) Tubulovillous adenoma of colon (Acute) Pre-op examination (Acute) Vitamin D deficiency (Acute) HLD (hyperlipidemia) (Acute) HTN (hypertension) (Acute) Chronic cough (Acute) GERD (gastroesophageal reflux disease) (Acute) Barretts esophagus (Acute) Chronic left hip pain (Acute) Anxiety (Acute) Panic attack (Acute) IBS (irritable bowel syndrome) (Acute) Past Medical History Medical History (Updated 12/27/24 @ 14:52 by Vangie Martines, SOULEYMANE) GERD (gastroesophageal reflux disease) Barretts esophagus Anxiety Hyperlipidemia HTN (hypertension) Encounter for colonoscopy due to history of adenomatous colonic polyps IBS (irritable bowel syndrome) Hx of small bowel obstruction Family History Family History Mother Parkinson disease Maternal Aunt Breast cancer Maternal Grandfather Colon cancer Surgical History Surgical History Hx of cholecystectomy Hx of appendectomy Hx of exploratory laparotomy History of partial hysterectomy Hx of cataract removal with insertion of prosthetic lens Social History Social History Household Members: None Housing: Apartment Alcohol intake: current Alcohol intake frequency: a few times a month Patient Tobacco Use Status: Former Tobacco user Tobacco use type: Cigarette Years Smoked: 25 e-Cigarette/Vaping Use: Never Used Second Hand Smoke Exposure: No service: No Current occupational status: retired Current occupational exposures/hazards: No Cognitive needs: No Hearing needs: No Vision needs: Yes (Reading glasses) Meds Allergies Allergy/AdvReac Type Severity Reaction Status Date / Time morphine AdvReac Unknown Itching Verified 12/06/24 13:16 Exam Height,Weight and Vital Signs: Height 5 ft 3 in Weight 62.142 kg Assessment and Plan Assessment Anesthesia Assessment: Chart Reviewed
--- NOTE | 2025-01-21 12:05 | MHC.SHP ---
Pre-Procedural Eval Section A - 24 Hr Update-Section A only Date of Service: 01/21/25 Section B - Complete if H&P > 30 days Chief Complaint: Velasco's esophagus, Hx of polyps Details of Present Illness: Hypertension High cholesterol Chronic cough GERD/Barretts IBS Chronic left hip pain Anxiety with panic attacks History of small-bowel obstruction s/p appendix rupture adn sepsis * SURGICAL HISTORY Cholecystectomy Appendectomy Exploratory laparotomy Partial hysterectomy Cataract surgery Tonsillectomy and adenectomy * ALLERGIES Morphine * Present Medications: see Short Stay Collaborative assessment Allergies: Allergies Allergy/AdvReac Type Severity Reaction Status Date / Time morphine AdvReac Unknown Itching Verified 12/06/24 13:16 Review of Systems Review of Systems Comment: Ten point ROS negative Exam Exam Comment: Gen appear: No acute distress HEENT: no icterus Chest: No overt resp distress Abd: soft, nontender, nondistended Psych: Stable affect, answering questions appropriately Neuro: A/Ox3 noted to move all extremities spontaneously Ext: no peripheral edema Plan Diagnosis/Plan: Unchanged I have reviewed the history and physical and performed a pertinent physical examination on my patient. No changes have occurred unless specified. Time Spent With Patient Time: Total time managing care of this patient today ____ minutes.
[2025-01-21 12:12] VITALS: BP 173/93; PULSE 82; RESP 18; TEMP 36.1; O2SAT 97; BMI 23.5
[2025-01-21] MEDS: Lactated Ringers 1,000 ML 100 ML IVCONT (12:24)
--- NOTE | 2025-01-21 13:13 | P.CONAN_ITS ---
[facility] Active Problems Active Problems: All Active Problems Diarrhea (Acute) Tubulovillous adenoma of colon (Acute) Pre-op examination (Acute) Vitamin D deficiency (Acute) HLD (hyperlipidemia) (Acute) HTN (hypertension) (Acute) Chronic cough (Acute) GERD (gastroesophageal reflux disease) (Acute) Barretts esophagus (Acute) Chronic left hip pain (Acute) Anxiety (Acute) Panic attack (Acute) IBS (irritable bowel syndrome) (Acute) Past Medical History Medical History GERD (gastroesophageal reflux disease) Barretts esophagus Anxiety Hyperlipidemia HTN (hypertension) Encounter for colonoscopy due to history of adenomatous colonic polyps IBS (irritable bowel syndrome) Hx of small bowel obstruction Family History Family History Mother Parkinson disease Maternal Aunt Breast cancer Maternal Grandfather Colon cancer Family history of problems with anesthesia: No Surgical History Surgical History Hx of esophagogastroduodenoscopy Hx of colonoscopy Hx of cholecystectomy Hx of appendectomy Hx of exploratory laparotomy History of partial hysterectomy Hx of cataract removal with insertion of prosthetic lens History of Problems with Anesthesia: No Social History Social History Household Members: None Housing: Apartment Alcohol intake: current Alcohol intake frequency: does not drink Patient Tobacco Use Status: Former Tobacco user Tobacco use type: Cigarette Years Smoked: 25 e-Cigarette/Vaping Use: Never Used Second Hand Smoke Exposure: No Are you DNR?: No Advance Directives: No Advance Directives Information Provided: Yes service: No Current occupational status: retired Current occupational exposures/hazards: No Cognitive needs: No Hearing needs: No Vision needs: Yes (Reading glasses) Meds Allergies Allergy/AdvReac Type Severity Reaction Status Date / Time morphine AdvReac Unknown Itching Verified 12/06/24 13:16 Active Medications: Current Medications Lactated Ringer's (Lr) 1,000 mls @ 100 mls/hr IVCONT .Q10H CHATO Last Admin: 01/21/25 12:24 Dose: 100 mls/hr Exam Exam Date and Time: 01/21/25 Height,Weight and Vital Signs: Height 5 ft 3 in Weight 60.2 kg Last Vital Signs Temp 97 F 10/14/25 12:12 Pulse 82 01/21/25 12:12 Resp 18 01/21/25 12:12 BP 173/93 H 01/21/25 12:12 Pulse Ox 97 01/21/25 12:12 O2 Del Method Room Air 01/21/25 12:12 Narrative Narrative: took losartan today Airway Mallampati Class: I TM Dist: >3cm Neck ROM: Full Heart: rrr Lungs: ctab vesicular Assessment and Plan Assessment Anesthesia Assessment: Anesthesia Plan Discussed and Chart Reviewed Final Anesthetic Review Family History of Problems with Anesthesia: No History of Problems with Anesthesia: No NPO: Yes ASA Class: II Final Preanesthetic Review: No Changes in Pt Med Stat, Meds/Allgs Chart Reviewed, Consent Obtained/Reviewed and Anes Risks/Benef Reviewed Patient Risk: Low Procedure Risk: Low Anesthetic Plan Anesthetic Plan: MAC: Disposition: Standard PACU
[2025-01-21 14:13] VITALS: BP 138/75; PULSE 70; RESP 20; TEMP 37.1; O2SAT 97
[2025-01-21 14:28] VITALS: BP 170/87; PULSE 69; RESP 20; O2SAT 99
--- NOTE | 2025-01-21 14:34 | P.OPN-COLO_ITS ---
Colonoscopy Operative Note Operative Note Date of Service: 01/21/25 Narrative: Procedure: Upper endoscopy and colonoscopy Indication: BE, hx of polyps Endoscopist: Jamilah Renner MD Anesthesia Provider: Dr Gabe Weston Anesthesia type: MAC Instrument: [id number] and [id number] EGD Procedure:?? The procedure, indications, preparation and potential complications were reviewed with the patient, who indicated understanding and gave written informed consent to proceed. The endoscope was introduced through the mouth, and advanced to the 2nd part of the duodenum. The mucosa was carefully examined on slow withdrawal of the endoscope. The patient tolerated the procedure well. There were no immediate complications.? EGD Findings:? * Esophagus:? Normal esophageal mucosa was noted. The Z-line was at 40 cm and irregular to 39 cm with a SCM tongue extending to 38 cm ([place] C1M2). Cold forceps biopsies were taken q1cm for Velasco's surveillance. A tissue cypher was also sent. * Stomach:? Normal gastric mucosa. Retroflexion was performed in the cardia. * Duodenum:? Normal duodenal mucosa. Colonoscopy Procedure:? The patient was then turned for the colonoscopy. A digital rectal exam was performed which was normal.? A distal attachment cap was affixed to the tip of the scope and the colonoscope was then inserted through the anus and advanced through the colon and advanced to the cecum at 75 cm.? Appendiceal orifice and ileocecal valve were identified. Mucosa was carefully examined under high definition white light as the instrument was slowly withdrawn in a retrograde panoramic fashion. Retroflexion was performed in rectum. The procedure was not difficult. The quality of the prep was BBPS: 2+2+3 = adequate Withdrawal time 16 minutes Limitations: No limitations Findings: Mucosa: Normal colon and terminal ileum mucosa. Protruding lesions: * 2 sessile polyps of size 5-8 mm were noted in ascending colon. Cold snare polypectomy was performed. The polyps were completely removed and retrieved. * 1 sessile polyp of size 2 mm in transverse colon. Cold forceps polypectomy was performed. The polyp was completely removed and retrieved. * 1 semi-pedunculated polyp of size 10 mm in sigmoid colon. Hot snare polypectomy was performed. The polyp was completely removed and retrieved. * Medium internal hemorrhoids without stigmata of recent bleeding. Excavated lesions: ? Mild diverticulosis of sigmoid colon. Impression: 1. Velasco's esophagus (biopsy) 2. Normal stomach 3. Normal duodenum 4. Normal colon mucosa 5. Total of 4 polyps removed 6. Diverticulosis 7. Internal hemorrhoids Recommendations:?? * Follow-up path results * Avoid NSAIDs * Cont PPI * Repeat colonoscopy in 3 years
[2025-01-21 14:39] VITALS: BP 162/75; PULSE 72; RESP 16; TEMP 36.8; O2SAT 98
== END 2025-01-21 15:23 | disposition home or self-care (01) ==
PROVIDERS: Visit Provider Internal Medicine
PROC: (CPT 45380; principal; 2025-01-21 14:50)
DX: Z12.11 Encounter for screening for malignant neoplasm of colon (principal); Z86.0101 Personal history of adenomatous and serrated colon polyps; K22.70 Barrett's esophagus without dysplasia; D12.2 Benign neoplasm of ascending colon; D12.5 Benign neoplasm of sigmoid colon; D12.3 Benign neoplasm of transverse colon; K57.30 Diverticulosis of large intestine without perforation or abscess without bleeding; K64.8 Other hemorrhoids
CPT/HCPCS: 45380; 45385; 43239; 88305; 88313; 88342; J0168; J2003; J2371; J2405; J2704; J3010

== ENCOUNTER → 2025-01-21 11:43 | Outpatient (BNV) | payer MEDICARE, SELFPAY | PROVIDERS: Visit Provider Internal Medicine | DX: Z12.11 Encounter for screening for malignant neoplasm of colon (principal); Z86.0100 Personal history of colon polyps, unspecified; D12.2 Benign neoplasm of ascending colon; D12.5 Benign neoplasm of sigmoid colon; D12.3 Benign neoplasm of transverse colon; K57.30 Diverticulosis of large intestine without perforation or abscess without bleeding; K64.8 Other hemorrhoids; K22.70 Barrett's esophagus without dysplasia | CPT/HCPCS: 43239; 45380; 45385 ==

== ENCOUNTER 2025-02-04 12:00 | Outpatient (AMB) | payer MEDICARE, SELFPAY ==
--- NOTE | 2025-02-04 12:26 | A.OFFVIS_ITS ---
Vital Signs 02/04/25 12:42 Height 5 ft 3 in Weight 136 lb 10.986 oz BMI 24.2 BP 143/85 H Blood Pressure Location Lt brachial Position Sitting Pulse 81 Intake Visit Reasons: s/p colonoscopy/EGD Intake Note: Patient in office today in follow up s/p EGD and colonoscopy. CC: Patient denies having any GI symptoms or concerns today. 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 Accompanied by: Self / Same As Patient Allergies morphine Adverse Reaction (Unknown, Verified 02/04/25 12:45) Itching HPI HPI s/p colonoscopy/EGD: Details: Assessment & Plan (1) Pre-op examination: Code(s): Z01.818 - Encounter for other preprocedural examination Category: Medical (2) Barretts esophagus: Comment: 2022 last EGD biopsy showed continued metaplasia no dysplasia Code(s): K22.70 - Velasco's esophagus without dysplasia Category: Medical Qualifiers: Velasco's esophagus type: with dysplasia of unspecified degree Qualified Code(s): K22.719 - Velasco's esophagus with dysplasia, unspecified (3) GERD (gastroesophageal reflux disease): Code(s): K21.9 - Gastro-esophageal reflux disease without esophagitis Category: Medical Qualifiers: Esophagitis presence: esophagitis presence not specified Qualified Code(s): K21.9 - Gastro-esophageal reflux disease without esophagitis (4) IBS (irritable bowel syndrome): Code(s): K58.9 - Irritable bowel syndrome, unspecified Category: Medical Qualifiers: Irritable bowel syndrome type: with constipation Qualified Code(s): K58.1 - Irritable bowel syndrome with constipation (5) Tubulovillous adenoma of colon: Comment: 2022 SCOPE IN [place] equaled for polyps the rectal polyp is 1.5 cm and was a tubulovillous adenoma Code(s): D12.6 - Benign neoplasm of colon, unspecified Category: Medical (6) Diarrhea: Code(s): R19.7 - Diarrhea, unspecified Category: Medical Plan Her 2022 scope showed a TVA and the rectal polyp, 1 of 3, was 1.5cm. EGD showed mod chronic gastirits on biopsy , negative for H pylori, and Barrets esophogus w/o any dyplasia. No anes or sed problems. No card or resp problems. NO ID problems. Her maternal grandfather of CRC in 60's, maternal grandmother had polyps. Orders: Orders EGD/[place] Combo - GI Use Only 12/06/24 D12.6 - Benign neoplasm of colon, unspecified Transglutaminase IgA 12/06/24 R19.7 - Diarrhea, unspecified Transglutaminase Ab IgG 12/06/24 R19.7 - Diarrhea, unspecified Medications: New peg 3350-electrolytes 236-22.74-6.74 -5.86 gram (Golytely) until fecal effluent is clear; do not exceed a total volume of 2,000 mL 240 mL PO Q10M 4,000 mL 0RF 1 day Z12.11 - Encounter for screening for malignant neoplasm of colon bisacodyl (Dulcolax (bisacodyl)) 10 mg (2 x 5 mg) PO BEDTIME 4 tabs 0RF 2 days dicyclomine 20 mg PO QID 120 tabs 3RF 30 days K58.1 - Irritable bowel syndrome with constipation LABS Laboratory Tests 12/06/24 14:26 Tiss Transglutamin IgG <1.0 Tiss Transglutamin IgA <1.0 EGD/COLONOSCOPY 01/21/25 EGD Findings:? * Esophagus:? Normal esophageal mucosa was noted. The Z-line was at 40 cm and irregular to 39 cm with a SCM tongue extending to 38 cm ([place] C1M2). Cold forceps biopsies were taken q1cm for Velasco's surveillance. A tissue cypher was also sent. * Stomach:? Normal gastric mucosa. Retroflexion was performed in the cardia. * Duodenum:? Normal duodenal mucosa. Findings: Mucosa: Normal colon and terminal ileum mucosa. Protruding lesions: * 2 sessile polyps of size 5-8 mm were noted in ascending colon. Cold snare polypectomy was performed. The polyps were completely removed and retrieved. * 1 sessile polyp of size 2 mm in transverse colon. Cold forceps polypectomy was performed. The polyp was completely removed and retrieved. * 1 semi-pedunculated polyp of size 10 mm in sigmoid colon. Hot snare polypectomy was performed. The polyp was completely removed and retrieved. * Medium internal hemorrhoids without stigmata of recent bleeding.Excavated lesions: ? Mild diverticulosis of sigmoid colon. Impression: 1. Velasco's esophagus (biopsy) 2. Normal stomach 3. Normal duodenum 4. Normal colon mucosa 5. Total of 4 polyps removed 6. Diverticulosis 7. Internal hemorrhoids Recommendations:?? * Follow-up path results * Avoid NSAIDs * Cont PPI * Repeat colonoscopy in 3 years BIOPSY Received: 01/21/25 ADDENDUM REPORT Addendum Addendum #1 TissueCypher results will be addended. Electronically Signed By: Aba Paiz MD 01/23/25 [id number] Diagnosis A. Esophagus, 40 cm, biopsy: - Velasco esophagus with background moderate chronic inactive inflammation. - No dysplasia seen. - Squamous epithelium within normal limits. B. Esophagus, 39 cm, biopsy: - Cardiofundic-type mucosa with mild chronic inactive inflammation; no intestinal metaplasia seen. - Squamous epithelium within normal limits. C. Esophagus, 38 cm, biopsy: - Cardiofundic-type mucosa with mild chronic inactive inflammation; no intestinal metaplasia seen. - Squamous epithelium within normal limits. D. Colon, right, polypectomies: - Fragments of sessile serrated lesion(s)/polyp(s); negative for cytologic dysplasia. - Fragments of tubular adenoma(ta); negative for high-grade dysplasia or carcinoma. E. Colon, sigmoid, polypectomy: Tubular adenoma; negative for high-grade dysplasia or carcinoma TODAYS VISIT [facility] Medical History GERD (gastroesophageal reflux disease) Barretts esophagus Anxiety Hyperlipidemia HTN (hypertension) Encounter for colonoscopy due to history of adenomatous colonic polyps IBS (irritable bowel syndrome) Hx of small bowel obstruction Surgical History Hx of esophagogastroduodenoscopy Hx of colonoscopy Hx of cholecystectomy Hx of appendectomy Hx of exploratory laparotomy History of partial hysterectomy Hx of cataract removal with insertion of prosthetic lens Family History Mother Parkinson disease Maternal Aunt Breast cancer Maternal Grandfather Colon cancer Social History Household Members: None Housing: Apartment Alcohol intake: current Alcohol intake frequency: does not drink Patient Tobacco Use Status: Former Tobacco user Tobacco use type: Cigarette Years Smoked: 25 e-Cigarette/Vaping Use: Never Used Second Hand Smoke Exposure: No service: No Current occupational status: retired Current occupational exposures/hazards: No Cognitive needs: No Hearing needs: No Vision needs: Yes (Reading glasses) Review of Systems Const Denies fatigue, Denies fever(s), Denies night sweats, Denies poor appetite and Denies weight loss Eyes Details: glasses Reports requires corrective lenses ENT Reports Normal hearing present, Denies dental pain, Denies dysphagia, Denies he aring loss, Denies mouth pain, Denies odynophagia, Denies throat swelling, Denies tongue swelling and Reports other (Dentition adequate) Card Reports no additional complaints Resp Reports no additional complaints GI Details: Denies abdominal pain, Denies melena, Denies bloating, Denies hematochezia, Denies constipation, Denies GI cramping, Denies dysphagia, Denies excessive flatus, Denies early satiety, Reports heartburn, Denies diarrhea, Denies nausea, Denies odynophagia, Denies vomiting and Denies hematemesis Skin/Breast Denies pruritus, Denies lesions, Denies rash and Denies jaundice Neuro Reports Normal hearing present and Denies Abnormal speech present Endo Denies fatigue Aller/Immun Denies throat swelling and Denies tongue swelling Physical Exam Vital Signs: Last Vital Signs Pulse 81 02/04/25 12:42 BP 143/85 H 02/04/25 12:42 BMI result Body Mass Index 24.2 Const General: cooperative, no acute distress, well developed and well groomed Nutritional Appearance: average body habitus and well nourished Orientation/consciousness: oriented to person, oriented to place and oriented to time Limitations: No language barrier HEENT Head: Yes normocephalic and Yes atraumatic Eyes General: appearance normal, both eyes and all related structures Pupils: Equal, round and reactive pupils present Neck Neck: Yes normal visual inspection and Yes no lymphadenopathy Thyroid: Thyroid normal Resp Effort & Inspection: normal respiratory effort and able to speak in complete sentences Auscultation: clear to auscultation bilaterally Cardio Rate: regular rate Rhythm: regular rhythm Heart sounds: Normal, physiologic split S2 sound present Peripheral pulses: radial pulses present and posterior tibial pulses present GI Inspection: No distended and No Abdominal panniculus present Palpation (GI): Soft to palpation, nontender, no guarding, not rigid and No hepatosplenomegaly present Percussion: Yes normal to percussion Auscultation: normal bowel sounds Rectal Exam - Female: deferred Skin General skin exam: no rashes or lesions noted, turgor normal, skin not dry, no jaundice, No spider nevi and no striae Rashes: no rashes Nails: normal Neuro General: oriented to person, oriented to place and oriented to time Cranial nerves: Yes Equal, round and reactive pupils present and Yes Normal hearing present Speech: No Abnormal speech present Extrem General: Yes normal to inspection, No clubbing, No cyanosis and No edema Psych Appearance: grossly normal and well kempt Mental Status: mental status grossly normal Speech and movement: Normal speech and movement present Affect: normal affect Attitude: cooperative Thought process: Normal thought process present and not confabulating Thought content: Normal thought content present Insight: Good insight present (Psych) Judgement: Good judgement present (Psych) Results Reviewed Results Reviewed: Laboratory Tests 12/06/24 14:26 Tiss Transglutamin IgG <1.0 Tiss Transglutamin IgA <1.0 EGD/COLONOSCOPY 01/21/25 EGD Findings:? * Esophagus:? Normal esophageal mucosa was noted. The Z-line was at 40 cm and irregular to 39 cm with a SCM tongue extending to 38 cm ([place] C1M2). Cold forceps biopsies were taken q1cm for Velasco's surveillance. A tissue cypher was also sent. * Stomach:? Normal gastric mucosa. Retroflexion was performed in the cardia. * Duodenum:? Normal duodenal mucosa. Findings: Mucosa: Normal colon and terminal ileum mucosa. Protruding lesions: * 2 sessile polyps of size 5-8 mm were noted in ascending colon. Cold snare polypectomy was performed. The polyps were completely removed and retrieved. * 1 sessile polyp of size 2 mm in transverse colon. Cold forceps polypectomy was performed. The polyp was completely removed and retrieved. * 1 semi-pedunculated polyp of size 10 mm in sigmoid colon. Hot snare polypectomy was performed. The polyp was completely removed and retrieved. * Medium internal hemorrhoids without stigmata of recent bleeding.Excavated lesions: ? Mild diverticulosis of sigmoid colon. Impression: 1. Velasco's esophagus (biopsy) 2. Normal stomach 3. Normal duodenum 4. Normal colon mucosa 5. Total of 4 polyps removed 6. Diverticulosis 7. Internal hemorrhoids Recommendations:?? * Follow-up path results * Avoid NSAIDs * Cont PPI * Repeat colonoscopy in 3 years BIOPSY Received: 01/21/25 ADDENDUM REPORT Addendum Addendum #1 TissueCypher results will be addended. Electronically Signed By: Aba Paiz MD 01/23/25 3237 Diagnosis A. Esophagus, 40 cm, biopsy: - Velasco esophagus with background moderate chronic inactive inflammation. - No dysplasia seen. - Squamous epithelium within normal limits. B. Esophagus, 39 cm, biopsy: - Cardiofundic-type mucosa with mild chronic inactive inflammation; no intestinal metaplasia seen. - Squamous epithelium within normal limits. C. Esophagus, 38 cm, biopsy: - Cardiofundic-type mucosa with mild chronic inactive inflammation; no intestinal metaplasia seen. - Squamous epithelium within normal limits. D. Colon, right, polypectomies: - Fragments of sessile serrated lesion(s)/polyp(s); negative for cytologic dysplasia. - Fragments of tubular adenoma(ta); negative for high-grade dysplasia or carcinoma. E. Colon, sigmoid, polypectomy: Tubular adenoma; negative for high-grade dysplasia or car Assessment & Plan Assessment & Plan (1) Barretts esophagus: Comment: 2024 scope= no metaplasia or dysplasia; 2022 last EGD biopsy showed continued metaplasia no dysplasia Code(s): K22.70 - Velasco's esophagus without dysplasia Category: Medical Qualifiers: Velasco's esophagus type: with dysplasia of unspecified degree Qualified Code(s): K22.719 - Velasco's esophagus with dysplasia, unspecified (2) GERD (gastroesophageal reflux disease): Code(s): K21.9 - Gastro-esophageal reflux disease without esophagitis Category: Medical Qualifiers: Esophagitis presence: esophagitis presence not specified Qualified Code(s): K21.9 - Gastro-esophageal reflux disease without esophagitis (3) Tubulovillous adenoma of colon: Comment: 2024 scope=3TA's repeat 3 years; 2022 SCOPE IN [place] equaled for polyps the rectal polyp is 1.5 cm and was a tubulovillous adenoma Code(s): D12.6 - Benign neoplasm of colon, unspecified Category: Medical Plan She tolerated the procedures well and is agreeable to a 3 year follow-up. The procedure was well tolerated. The results were explained and the patient is agreeable to the follow-up interval as stated. The bowel pattern has returned to normal. Education was provided to tell any 1st degree relatives about their findings to be sure that they are screened by age 45. Educated that they will be put on a recall list when it is time for their repeat scope but should they move out of state or away from the hospital they will need to remember along with their primary to repeat the procedure in a timely fashion to avoid any adverse complications. Her pantoprazole is prescribed by her primary care provider and it continues to do very well in terms of controlling her GERD. This is evident by the reversal of the Barretts metaplasia on the past endoscopy. Return office visit PRN or in 3 years. Medications: Discontinued dicyclomine Discontinued Reason: Doctor's Order 20 mg PO QID 30 days 120 tabs 3RF K58.1 - Irritable bowel syndrome with constipation Coding Level of Care Code Est Pt Level 3 (43766) Diagnoses Velasco's esophagus with dysplasia K22.719 Velasco's esophagus type: with dysplasia of unspecified degree Gastroesophageal reflux disease, unspecified whether esophagitis present K21.9 Esophagitis presence: esophagitis presence not specified Tubulovillous adenoma of colon D12.6
[2025-02-04 12:42] VITALS: BP 143/85; PULSE 81; BMI 24.2
== END 2025-02-04 13:06 | disposition home or self-care (01) ==
LOC: HO.HGI 12:02
PROVIDERS: Visit Provider Nurse Practitioner
DX: K22.719 Barrett's esophagus with dysplasia, unspecified (principal); K21.9 Gastro-esophageal reflux disease without esophagitis; D12.6 Benign neoplasm of colon, unspecified
CPT/HCPCS: 99213

== ENCOUNTER → 2025-02-04 12:00 | Outpatient (BNVA) | payer MEDICARE, SELFPAY | PROVIDERS: Visit Provider Nurse Practitioner | DX: K21.9 Gastro-esophageal reflux disease without esophagitis (principal); K22.719 Barrett's esophagus with dysplasia, unspecified; D12.6 Benign neoplasm of colon, unspecified | CPT/HCPCS: 99212 ==

== ENCOUNTER 2025-02-20 10:04 | Outpatient (AMB) | payer MEDICARE, SELFPAY ==
[2025-02-20 10:38] VITALS: BP 166/98; PULSE 79; RESP 18; O2SAT 98; BMI 24.6
--- NOTE | 2025-02-20 10:38 | A.OFFPC_ITS ---
Vital Signs 02/20/25 10:38 Height 5 ft 3 in Weight 139 lb 2 oz BMI 24.6 BP 166/98 H Blood Pressure Location Lt brachial Position Sitting Respiration 18 Pulse 79 Pulse Source Pulse Oximeter Temp Source Temporal Artery Scan Pulse Oximetry (%) 98 Oxygen Delivery Method Room Air Intake Visit Reasons: hlt/vit D/htn Marketing Operations Consultant Required: No Accompanied by: Self / Same As Patient Allergies morphine Adverse Reaction (Unknown, Verified 02/20/25 10:54) Itching Medication List - Last Reconciled 03/02/25 by CAPRICE Shanks alprazolam 0.25 mg (1/2 x 0.5 mg) PO DAILY PRN cholecalciferol (vitamin D3) 50 mcg PO DAILY losartan-hydrochlorothiazide 100-12.5 mg 1 tab PO DAILY pantoprazole 40 mg PO DAILY paroxetine HCl 40 mg PO DAILY Tobacco use date assessed: 02/20/25 Fall risk assessment: No Falls in past year Last assessed Fall Risk: 02/20/25 Dental Screening Dental Screen Date: 02/20/25 Did you have a dental visit in the last 12 months?: No Did you have a dental problem in the last 6 months where you did not have access to dental care?: No Was dental information given to patient?: No HPI hlt/vit D/htn HPI Details Patient is a 74-year-old female presenting for HLD, HTN, vitamin-D deficiency, anxiety, GERD follow up. She has not completed pre-ordered labs as yet. She has a history of high blood pressure, for which she takes medication, but reports her blood pressure remains high when checked at home. She notes that her blood pressure was particularly high during a recent colonoscopy visit when she had not taken her anxiolytic medication. The patient reports taking 0.25 mg of Xanax for anxiety, particularly before clinic visits, which she feels helps lower her blood pressure in that setting. She states she is very careful with her diet, avoids fast food, cooks at home, and does not add salt. She acknowledges she should walk more. For health maintenance, the patient has had influenza, COVID-19, and pneumonia vaccinations and plans to get the shingles vaccine. [facility] Medical History GERD (gastroesophageal reflux disease) Barretts esophagus Anxiety Hyperlipidemia HTN (hypertension) Encounter for colonoscopy due to history of adenomatous colonic polyps IBS (irritable bowel syndrome) Hx of small bowel obstruction Surgical History Hx of esophagogastroduodenoscopy Hx of colonoscopy Hx of cholecystectomy Hx of appendectomy Hx of exploratory laparotomy History of partial hysterectomy Hx of cataract removal with insertion of prosthetic lens Family History Mother Parkinson disease Maternal Aunt Breast cancer Maternal Grandfather Colon cancer Social History Household Members: None Housing: Apartment Alcohol intake: current Alcohol intake frequency: does not drink Patient Tobacco Use Status: Former Tobacco user Tobacco use type: Cigarette Years Smoked: 25 e-Cigarette/Vaping Use: Never Used Second Hand Smoke Exposure: No service: No Current occupational status: retired Current occupational exposures/hazards: No Cognitive needs: No Hearing needs: No Vision needs: Yes (Reading glasses) Questionnaire PHQ-9 Over the last 2 weeks, how often have you been bothered by any of the following problems? Depression Screening Interpretation: Negative Depression Screening Done: Yes Source: Developed by Drs. Yemi Maynard, Anastasia Steward, Bandar Davis and colleagues, with an educational rae from [employer]. Thrive Questionnaire Date Thrive assessed: 08/06/24 I am a: Patient What is your living situation today?: I have a steady place to live Within the past 12 months, did the food you bought not last and you didn't have the money to get more?: Never true Within the past 12 months, did you worry whether your food would run out before you got money to buy more?: Never true Do you have trouble paying for medicines?: No Do you have trouble getting transportation to medical appointments?: No Do you have trouble paying your heating and electricity bill?: No Do you have trouble taking care of your child, family member or friend?: No Do you have trouble with day-to-day activities such as bathing, preparing meals, shopping, managing finances, etc.?: No Are you currently unemployed and looking for a job?: No Are you interested in more education?: No Please select the resources that you would like help with: None Currently or been in a relationship where the following occur: No concerns reported THRIVE Score: 0 AMILCAR-7 AMB Questionnaire AMILCAR-7 Date AMILCAR - 7 assessed: 11/13/24 Source: Developed by Drs. Yemi Maynard, Anastasia Steward, Bandar Davis and colleagues, with an educational rae from [employer]. Review of Systems Const Denies body aches, Denies chills, Denies fever(s), Denies headache(s) and Denies poor appetite Eyes Reports no additional complaints ENT Denies dysphagia, Denies dizziness, Denies headache(s) and Denies odynophagia Card Denies chest pain, Denies syncope, Denies edema, Denies irregular heart rhythm, Denies lightheadedness and Denies dyspnea Resp Denies cough and Denies dyspnea GI Denies abdominal pain, Denies constipation, Denies dysphagia, Denies diarrhea, Denies nausea, Denies odynophagia and Denies vomiting Reports no additional complaints Musc Reports no additional complaints and Denies abnormal gait Skin/Breast Reports system reviewed and no additional complaints, except as documented Neuro Denies abnormal gait, Denies dizziness, Denies syncope and Denies headache(s) Psych Reports anxiety and Reports panic attacks (None in a while) Physical exam (Primary Care) Vital Signs: Last Vital Signs Pulse 79 02/20/25 10:38 Resp 18 02/20/25 10:38 BP 166/98 H 02/20/25 10:38 Pulse Ox 98 02/20/25 10:38 Oxygen Delivery Method Room Air 02/20/25 10:38 BMI result Body Mass Index 24.6 Tobacco/Smoking Status: Tobacco use Status Tobacco use date assessed 02/20/25 02/20/25 10:46 Patient Tobacco Use Status Former Tobacco user 02/20/25 10:46 Tobacco use type Cigarette 02/20/25 10:46 e-Cigarette/Vaping Use Never Used 02/20/25 10:46 Depression Screening Interpretation: Negative Thrive Assessment: Date of Thrive Assessment Date Thrive assessed 08/06/24 02/20/25 10:46 Currently or been in a relationship where the following occur: No concerns reported Const General: cooperative, healthy appearing, comfortable and no acute distress Orientation/consciousness: patient oriented x3 HENMT Head: Yes normocephalic Ears: hearing grossly normal bilaterally General nose exam: Normal external nose present Eyes General: appearance normal, both eyes and all related structures Conjunctivae: conjunctivae normal Neck Neck: Yes full ROM and Yes no lymphadenopathy Resp Effort & Inspection: normal respiratory effort Auscultation: clear to auscultation bilaterally, no crackles, no rales, no rhonchi and no wheezes Cardio Rate: regular rate Rhythm: regular rhythm Heart sounds: no murmurs GI Palpation (GI): Soft to palpation and nontender Auscultation: normal bowel sounds Skin General skin exam: no rashes or lesions noted Neuro General: patient oriented x3 Gait exam (Neuro): Normal gait present Extrem General: Yes normal to inspection, Yes full ROM and No edema Right lower extremity: full ROM; no edema Left lower extremity: full ROM; no edema Psych Affect: normal affect Attitude: cooperative Insight: Good insight present (Psych) Judgement: Good judgement present (Psych) Coding Level of Care Code Est Pt Level 4 (06761) Diagnoses Panic attack F41.0 Anxiety F41.9 Hypertension, unspecified type I10 Hypertension type: unspecified Hyperlipidemia, unspecified hyperlipidemia type E78.5 Hyperlipidemia type: unspecified Vitamin D deficiency E55.9 Gastroesophageal reflux disease, unspecified whether esophagitis present K21.9 Esophagitis presence: esophagitis presence not specified Time Spent (min) 36 Assessment & Plan Assessment & Plan (1) Panic attack: Code(s): F41.0 - Panic disorder [episodic paroxysmal anxiety] Category: Medical Plan: History of panic attacks managed with Paxil 40 mg daily Xanax 0.25 mg daily p.r.n. Reports recurrent anxiety for no panic attacks recently (2) Anxiety: Code(s): F41.9 - Anxiety disorder, unspecified Category: Medical Plan: Encouraged CBT Continue Paxil 40 mg daily, Xanax 0.25 mg daily p.r.n. Denies SI/HI (3) HTN (hypertension): Code(s): I10 - Essential (primary) hypertension Category: Medical Qualifiers: Hypertension type: unspecified Qualified Code(s): I10 - Essential (primary) hypertension Plan: The patient's blood pressure remains elevated at home, indicating her hypertension is not adequately controlled with the current regimen of losartan 100 mg. While anxiety is a contributing factor, the consistently high home readings suggest underlying hypertension requires medication adjustment. To improve blood pressure control, a combination medication will be initiated, adding hydrochlorothiazide 12.5 mg to her existing losartan 100 mg dose. This is a low dose, and it can be increased if needed. A follow-up appointment for a blood pressure check is scheduled in four weeks. (4) HLD (hyperlipidemia): Code(s): E78.5 - Hyperlipidemia, unspecified Category: Medical Qualifiers: Hyperlipidemia type: unspecified Qualified Code(s): E78.5 - Hyperlipidemia, unspecified Plan: LDL 130 mg/dL 08/15/2024-goal less than 100. Urge to complete follow pre-ordered blood work to re-evaluate. Reports using statin in the past and discontinued this due to side effects and lack of lowering cholesterol to recommended ranges. (5) Vitamin D deficiency: Code(s): E55.9 - Vitamin D deficiency, unspecified Category: Medical Plan: Continue cholecalciferol 50 mcg daily (6) GERD (gastroesophageal reflux disease): Code(s): K21.9 - Gastro-esophageal reflux disease without esophagitis Category: Medical Qualifiers: Esophagitis presence: esophagitis presence not specified Qualified Code(s): K21.9 - Gastro-esophageal reflux disease without esophagitis Plan: She is followed for Velasco's esophagus and was last seen for an EGD in July 2022, with the next procedure planned for 2024. Her condition contributes to dysphagia and a chronic productive cough, both of which have been present for over a year. Her GERD symptoms are controlled with Protonix Plan The management plan involves adding hydrochlorothiazide to losartan for better management of hypertension medications due to elevated readings. For hyperlipidemia, strict dietary changes are advised, since the patient does not want to take any cholesterol lowering medications. Pre-ordered labs were not completed as yet-encouraged the patient to get these done elmer to re-evaluate. Anxiety will be managed with Xanax as needed, focusing on reducing stress through lifestyle modifications. Protonix will continue to be used for gastroesophageal reflux disease management, as it is effective in symptom control. Vitamin D supplementation will be continued to support bone health and alleviate musculoskeletal symptoms. Preventative care includes vaccinations for flu, COVID-19, RSV, pneumonia, and shingles, with instructions on where to obtain them. Patient was informed and verbally consented to the use of an ambient scribe for clinic note documentation during this visit. Orders: Orders Complete Blood Count Auto Diff 3 Months F41.0 - Panic disorder [episodic paroxysmal anxiety], F41.9 - Anxiety disorder, unspecified, I10 - Essential (primary) hypertension, E78.5 - Hyperlipidemia, unspecified, E55.9 - Vitamin D deficiency, unspecified, K21.9 - Gastro-esophageal reflux disease without esophagitis Lipid Panel 3 Months F41.0 - Panic disorder [episodic paroxysmal anxiety], F41.9 - Anxiety disorder, unspecified, I10 - Essential (primary) hypertension, E78.5 - Hyperlipidemia, unspecified, E55.9 - Vitamin D deficiency, unspecified, K21.9 - Gastro-esophageal reflux disease without esophagitis UA CC w/rflx Micro + Cult 3 Months F41.0 - Panic disorder [episodic paroxysmal anxiety], F41.9 - Anxiety disorder, unspecified, I10 - Essential (primary) hypertension, E78.5 - Hyperlipidemia, unspecified, E55.9 - Vitamin D deficiency, unspecified, K21.9 - Gastro-esophageal reflux disease without esophagitis TSH reflex Free T4 3 Months F41.0 - Panic disorder [episodic paroxysmal anxiety], F41.9 - Anxiety disorder, unspecified, I10 - Essential (primary) hypertension, E78.5 - Hyperlipidemia, unspecified, E55.9 - Vitamin D deficiency, unspecified, K21.9 - Gastro-esophageal reflux disease without esophagitis Comprehensive [place]. Panel Fast 3 Months F41.0 - Panic disorder [episodic paroxysmal anxiety], F41.9 - Anxiety disorder, unspecified, I10 - Essential (primary) hypertension, E78.5 - Hyperlipidemia, unspecified, E55.9 - Vitamin D deficiency, unspecified, K21.9 - Gastro-esophageal reflux disease without esophagitis Vitamin D 25-OH Total 3 Months F41.0 - Panic disorder [episodic paroxysmal anxiety], F41.9 - Anxiety disorder, unspecified, I10 - Essential (primary) hypertension, E78.5 - Hyperlipidemia, unspecified, E55.9 - Vitamin D deficiency, unspecified, K21.9 - Gastro-esophageal reflux disease without esophagitis Medications: New losartan-hydrochlorothiazide 100-12.5 mg 1 tab PO DAILY 30 tabs 3RF Discontinued losartan Discontinued Reason: Duplicate 100 mg PO DAILY 90 tabs 3RF
== END 2025-02-20 11:07 | disposition home or self-care (01) ==
LOC: HO.HMCH 10:05
DX: F41.0 Panic disorder [episodic paroxysmal anxiety] (principal); F41.9 Anxiety disorder, unspecified; I10 Essential (primary) hypertension; E78.5 Hyperlipidemia, unspecified; E55.9 Vitamin D deficiency, unspecified; K21.9 Gastro-esophageal reflux disease without esophagitis

== ENCOUNTER 2025-02-20 10:04 | Outpatient (REF) | payer MEDICARE, SELFPAY ==
[2025-02-20 12:42] LABS: Alanine Aminotransferase 13 U/L (0-31); Albumin Level 4.7 g/dL (3.5-5.0); Alkaline Phosphatase 100 U/L (39-117); Anion Gap 13 (12-20); Aspartate Amino Transferase 19 U/L (5-31); Blood Urea Nitrogen 18 mg/dL (9-16); Calcium 9.4 mg/dL (8.4-10.2); Carbon Dioxide 25 mmol/L (22-29); Chloride 105 mmol/L (96-108); Cholesterol 296 mg/dL (<200); Estimated Glomerular Filt Rate 60; HDL Cholesterol 87 mg/dL (>40); Potassium 3.9 mmol/L (3.3-5.1); Sodium 139 mmol/L (135-145); Total Protein 7.5 g/dL (6.5-8.0); Triglycerides 103 mg/dL (<150)
== END 2025-02-20 10:05 | disposition home or self-care (01) ==
LOC: HO.LAB 10:04
DX: I10 Essential (primary) hypertension (principal); F41.0 Panic disorder [episodic paroxysmal anxiety]; F41.9 Anxiety disorder, unspecified; E78.5 Hyperlipidemia, unspecified; E55.9 Vitamin D deficiency, unspecified; K22.719 Barrett's esophagus with dysplasia, unspecified; K21.9 Gastro-esophageal reflux disease without esophagitis
CPT/HCPCS: 36415; 80053; 80061; 82306; 84443; 99212

== ENCOUNTER 2025-02-21 11:48 | Outpatient (REF) | payer MEDICARE, SELFPAY ==
[2025-02-21 12:20] LABS: Appearance Urine Clear; Glucose Urine UA Negative (Negative); PH 5.0 (5.0-9.0); Specific Gravity - Urine 1.020 (1.005-1.025)
== END 2025-02-21 11:49 | disposition home or self-care (01) ==
LOC: HO.LNP 11:48
DX: I10 Essential (primary) hypertension (principal); F41.0 Panic disorder [episodic paroxysmal anxiety]; E78.5 Hyperlipidemia, unspecified; E55.9 Vitamin D deficiency, unspecified; K22.719 Barrett's esophagus with dysplasia, unspecified; K21.9 Gastro-esophageal reflux disease without esophagitis
CPT/HCPCS: 81003

== ENCOUNTER → 2025-03-20 10:35 | Outpatient (BNVA) | payer MEDICARE, SELFPAY | DX: I10 Essential (primary) hypertension (principal) | CPT/HCPCS: 99211 ==